=== PATIENT | female | born 1985 | race Caucasian/White ===

== ENCOUNTER 2020-11-12 20:26 | Emergency (ER) | payer BC ==
--- NOTE | 2020-11-12 20:48 | EDM.PDOC ---
ED HPI GENERAL MEDICAL PROBLEM - General Chief Complaint: Head Injury Stated Complaint: HIT HEAD/DIZZY Time Seen by Provider: 11/12/20 20:32 Source of Information: Reports: Patient History Limitations: Reports: No Limitations - History of Present Illness INITIAL COMMENTS - FREE TEXT/NARRATIVE: History of present illness: Patient is a 35-year-old female who presents to the emergency room with complaints of right-sided head pain and dizziness since hitting her head in the shower this afternoon. She states she was trying to get out of the shower when she crouched down and stood up quickly resulting in her hitting the side of her head on the shower door. She states she had no loss of consciousness although has had localized pain and dizziness since. She has mild nausea without vomiting. Patient denies any fever, chills, no change in vision, syncope or near syncope. Denies any chest pain, back pain, shortness of breath or cough. Denies any abdominal pain, diarrhea, constipation or dysuria. Patient declines any chance of . Patient has been eating and drinking appropriately. Review of systems: As per history of present illness and below otherwise all systems reviewed and negative. Past medical history: As per history of present illness and as reviewed below otherwise noncontributory. Surgical history: As per history of present illness and as reviewed below otherwise noncontributory. Social history: No reported history of drug or alcohol abuse. Family history: As per history of present illness and as reviewed below otherwise noncontributor y. Physical exam: General: Well-developed and well nourished. Alert and appropriate for age. Nontoxic-appearing and in no acute distress. HEENT: Nontender, noncrepitus, no obvious injury noted. Normocephalic, pupils reactive, negative for conjunctival pallor or scleral icterus, mucous membranes moist, throat clear, neck supple, nontender, trachea midline. TMs normal bilaterally, no cervical adenopathy or nuchal rigidity. Lungs: Clear to auscultation, breath sounds equal bilaterally, chest nontender. No work of breathing, no accessory muscles use. Heart: S1S2, regular rate and rhythm, no overt murmurs Abdomen: Soft, nondistended, nontender to palpation. Negative for masses or hepatosplenomegaly. Normal abdominal bowel sounds. No flank tenderness. Pelvis: Stable nontender. C-spine/Back: No pinpoint vertebral tenderness upon palpation. No crepitus, step-offs or obvious deformities. Patient is ambulatory into the emergency room without difficulty or deficit. Able to rock back on heels and walk on toes. Denies any urinary or fecal incontinence. Denies any numbness, tingling or saddle paresthesia. No concerns of serious infection, fracture or cord compression, or cauda equina syndrome. Deep tendon reflexes brisk bilaterally. Hematologic: No petechiae or purpra. Mucosa appropriate color and normal nail bed color and refill. Skin: Normal turgor, no overt rash or lesions Extremities: Atraumatic, full range of motion without defects or deficits. Neurovascular unremarkable. Neuro: Awake, alert, and age appropriate. Cranial nerves II through XII unremarkable. Cerebellum unremarkable. Motor and sensory unremarkable throughout. Exam nonfocal. Notes: This patient was seen and evaluated during the 2019 SARS-CoV-2 novel coronavirus pandemic period. Community viral transmission is ongoing at time of this encounter and the emergency department is operating under pandemic response procedures Patient states there is no chance of and declines giving a urine for and hCGU. She declines wanting anything at this time for nausea or pain. Vital signs are stable. My physical exam is within normal limits, we discussed imaging which she would like at this time. CT shows no evidence of gross acute intracranial hemorrhage, mass effect or loss of lyman-white differentiation. Mild paranasal sinus disease with possible small left maxillary sinus fluid. VSS. I have spoken with the patient/caregiver and discussed today's findings, in addition to providing specific details for plan of care. Reassessment at the time of disposition demonstrates that the patient is in no acute distress. The patient is stable for discharge, counseling was provided and we discussed in great detail signs and symptoms that would prompt them to return to the Emergency Department. Medication, follow up and supportive care measures were reviewed and discussed. Voices understanding and is agreeable to plan of care. Denies any further questions or concerns at this time. Diagnostics: Head CT Therapeutics: None Prescription: None Impression: Head injury Plan: 1. Please review and follow the head injury instructions that we discussed and are printed in your discharge packet. 2. Limit any physical activities and follow cognitive rest (decrease screen time, reading, tv, etc..) over the next 24 hours pending resolution of symptoms. 3. Tylenol and/or ibuprofen as needed for pain management. 4. Follow-up with your primary care provider as we discussed. If your symptoms should worsen, new symptoms develop or any of the signs and symptoms we discussed should arise please return to the emergency room or call 911 (if needed). - Related Data Allergies Allergy/AdvReac Type Severity Reaction Status Date / Time acetaminophen [From Lortab] Allergy Vomiting Verified 11/12/20 20:43 hydrocodone [From Lortab] Allergy Vomiting Verified 11/12/20 20:43 Sulfa (Sulfonamide Allergy Other Verified 11/12/20 20:43 Antibiotics) Home Meds: Home Meds Dextroamphetamine/Amphetamine [Adderall 7.5 mg Tablet] 7.5 mg PO DAILY 11/12/20 [History] Omeprazole 40 mg PO DAILY 11/12/20 [History] ED ROS GENERAL - Review of Systems Review Of Systems: Comprehensive ROS is negative, except as noted in HPI. ED EXAM, HEAD INJURY - Physical Exam Exam: See Below (See dictation) Course - Vital Signs Last Recorded V/S: Last Vital Signs Temp 98 F 11/12/20 20:40 Pulse 81 11/12/20 20:40 Resp 18 11/12/20 20:40 BP 144/84 H 11/12/20 20:40 Pulse Ox 98 11/12/20 20:40 - Orders/Labs/Meds Orders: Active Orders 24 hr Category Date Time Status Head wo Cont [CT] Stat Exams 11/12/20 20:41 Taken Departure - Departure Time of Disposition: 21:46 Disposition: Home, Self-Care 01 Clinical Impression: Head injury Qualifiers: Encounter type: initial encounter Qualified Code(s): S09.90XA - Unspecified injury of head, initial encounter - Discharge Information Instructions: Concussion, Adult, [id number] Referrals: Linda Bundy NP [Primary Care Provider] - Forms: ED Department Discharge Additional Instructions: The following information is given to patients seen in the emergency department who are being discharged to home. This information is to outline your options for follow-up care. We provide all patients seen in our emergency department with a follow-up referral. The need for follow-up, as well as the timing and circumstances, are variable depending upon the specifics of your emergency department visit. If you don't have a primary care physician on staff, we will provide you with a referral. We always advise you to contact your personal physician following an emergency department visit to inform them of the circumstance of the visit and for follow-up with them and/or the need for any referrals to a consulting specialist. The emergency department will also refer you to a specialist when appropriate. This referral assures that you have the opportunity for follow-up care with a specialist. All of these measure are taken in an effort to provide you with optimal care, which includes your follow-up. Under all circumstances we always encourage you to contact your private physician who remains a resource for coordinating your care. When calling for follow-up care, please make the office aware that this follow-up is from your recent emergency room visit. If for any reason you are refused follow-up, please contact the [facility] Emergency Department at and asked to speak to the emergency department charge nurse. [facility] [address] [place] [id number] [address] [id number] Thank you for choosing the [facility] emergency department in [place] for your medical needs today. It was a pleasure caring for you. Today you were seen in the emergency department for dizziness 1. Please review and follow the head injury instructions that we discussed and are printed in your discharge packet. 2. Limit any physical activities and follow cognitive rest (decrease screen time, reading, tv, etc..) over the next 24 hours pending resolution of symptoms. 3. Tylenol and/or ibuprofen as needed for pain management. 4. Follow-up with your primary care provider as we discussed. If your symptoms should worsen, new symptoms develop or any of the signs and symptoms we discussed should arise please return to the emergency room or call 911 (if needed). Sepsis Event Note (ED) - Focused Exam Vital Signs: Vital Signs Temp Pulse Resp BP Pulse Ox 11/12/20 20:40 98 F 81 18 144/84 H 98 - My Orders Last 24 Hours: My Active Orders 11/12/20 20:41 Head wo Cont [CT] Stat - Assessment/Plan Last 24 Hours: My Active Orders 11/12/20 20:41 Head wo Cont [CT] Stat
--- NOTE | 2020-11-12 21:45 | CT ---
INDICATION: Injury. Dizziness TECHNIQUE: CT head without contrast. COMPARISON: None available FINDINGS: There is mild cortical volume loss for age. The ventricles are within normal limits. There is no mass effect or midline shift. There is no loss of lyman-white differentiation. There is no evidence of gross acute intracranial hemorrhage. No acute calvarial fracture is seen. There are postsurgical changes in the paranasal sinuses with mild paranasal sinus mucosal thickening and possible small left maxillary sinus fluid. The mastoid air cells are clear. The visualized orbits are within normal limits. IMPRESSION: No evidence of gross acute intracranial hemorrhage, mass effect or loss of lyman-white differentiation. Mild paranasal sinus disease with possible small left maxillary sinus fluid. Please note that all CT scans at this facility use dose modulation, iterative reconstruction, and/or weight-based dosing when appropriate to reduce radiation dose to as low as reasonably achievable. Dictated by Ashish Ravi MD @ Nov 12 2020 9:35PM Signed by Dr. Ashish Ravi @ Nov 12 2020 9:44PM
== END 2020-11-12 22:00 | disposition home or self-care (01) ==
LOC: MW.ED 20:26
DX: S09.90XA Unspecified injury of head, initial encounter (principal); Z88.6 Allergy status to analgesic agent; Z88.5 Allergy status to narcotic agent; Z88.2 Allergy status to sulfonamides; Z79.899 Other long term (current) drug therapy; W18.2XXA Fall in (into) shower or empty bathtub, initial encounter
CPT/HCPCS: 70450; 70450-26; 99283; 99284-25